=== PATIENT | female | born 1980 | race Caucasian/White ===

== ENCOUNTER 2019-03-21 18:10 | Emergency (ER) | payer OTHER ==
[2019-03-21] MEDS ORDERED: BABY ASPIRIN 81 MG CHEW PO ONE (18:27)
--- NOTE | 2019-03-21 18:31 | ERPHSYRPT ---
<SHELLY WANG - Last Filed: 03/21/19 18:54> - History of Present Illness Time Seen by Provider: 03/21/19 18:29 Historian: patient Exam Limitations: no limitations Patient Subjective Stated Complaint: having chest pain since noon , tried taking medications at home clonipin and2 baby aspirin with no relief Triage Nursing Assessment: patient is alert and orientedx3, able to ambulate by self, gait is steady, patient flushed skin warm and slightly diaphoretic, no edema noted, lung soudns clear Physician History: mild to mod anterior chest pain off and on since noon, pleuritic, nonrad, no injury, gone now Allergies/Adverse Reactions: ondansetron HCl [From [email or web address]] Adverse Reaction (Mild, Verified 02/21/13 05:06) Headache Home Medications: Tramadol HCl 50 mg [Ultram 50 mg] 50 mg PO Q8H PRN 02/21/13 [History] Hx Tetanus, Diphtheria Vaccination/Date Given: Yes Hx Influenza Vaccination/Date Given: No Hx Pneumococcal Vaccination/Date Given: No Immunizations Up to Date: Yes - Review of Systems Constitutional: No Fever Eyes: No Eye Redness Ears, Nose, & Throat: No Nose Congestion Respiratory: No Dyspnea Cardiac: Chest Pain Abdominal/Gastrointestinal: No Abdominal Pain Musculoskeletal: No Back Pain Skin: No Rash Neurological: No Dizziness - Past Medical History Pertinent Past Medical History: Yes Neurological History: Migraines Cardiac History: Arrhythmia, Other Psycho-Social History: Depression Other Medical History: mumurl, tricuspid valve regurgitation - Past Surgical History Past Surgical History: Yes Gastrointestinal: Exploratory Laparoscopy - Social History Smoking Status: Never smoker Exposure to second hand smoke: No Drug Use: none Patient Lives Alone: No - Female History Hx Now: No - Nursing Vital Signs Nursing Vital Signs: Initial Vital Signs Temperature 98.3 F 03/21/19 18:11 Pulse Rate 60 03/21/19 18:11 Respiratory Rate 16 03/21/19 18:11 Blood Pressure 152/94 03/21/19 18:11 O2 Sat by Pulse Oximetry 96 03/21/19 18:11 Pain Scale Pain Intensity 7 - Physical Exam General Appearance: no apparent distress Eye Exam: eyes nml inspection Ears, Nose, Throat Exam: moist mucous membranes Neck Exam: normal inspection Respiratory Exam: normal breath sounds Cardiovascular Exam: regular rate/rhythm Gastrointestinal/Abdomen Exam: soft, No tenderness Back Exam: normal range of motion Extremity Exam: normal inspection Neurologic Exam: alert, oriented x 3, cooperative Skin Exam: normal color, warm, dry SpO2: 96 Ordered Tests: Active Orders 24 hr Category Date Time Status Charge Aide STAT Care 03/21/19 18:28 Active EKG-ER Only STAT Care 03/21/19 18:27 Active IV Insertion STAT Care 03/21/19 18:27 Active CHEST 1 VIEW (PORTABLE) Stat Exams 03/21/19 18:28 Taken AMYLASE Stat Lab 03/21/19 18:00 Completed CBC W DIFF Stat Lab 03/21/19 18:39 Completed CMP Stat Lab 03/21/19 18:39 Completed D-DIMER QUANTITATION Stat Lab 03/21/19 18:39 Completed HCG,QUALITATIVE URINE Stat Lab 03/21/19 18:15 Completed LIPASE Stat Lab 03/21/19 18:00 Completed TROPONIN Q3H Lab 03/21/19 18:39 Completed TROPONIN Q3H Lab 03/21/19 21:09 Completed Urine Triage Profile Stat Lab 03/21/19 18:15 Completed Medication Summary Discontinued Medications Generic Name Dose Route Start Last Admin Trade Name Aramisq PRN Reason Stop Dose Admin Hydrocodone Bitart/Acetaminophen 1 tab 03/21/19 21:19 03/21/19 21:24 [place] 5/325 Mg PO 03/21/19 21:20 1 tab STAT ONE Administration Hydrocodone Bitart/Acetaminophen Confirm 03/21/19 21:23 [place] 5/325 Mg Administered 03/21/19 21:24 Dose 1 tab .ROUTE .STK-MED ONE Hydrocodone Bitart/Acetaminophen 2 tab 03/21/19 22:03 03/21/19 22:06 [place] 5/325 Mg PO 03/21/19 22:04 2 tab SENT HOME W/ PATIENT ONE Administration Hydrocodone Bitart/Acetaminophen Confirm 03/21/19 22:03 [place] 5/325 Mg Administered 03/21/19 22:04 Dose 2 tab .ROUTE .STK-MED ONE Aspirin 324 mg 03/21/19 18:27 03/21/19 18:39 Baby Aspirin 81 Mg Chew PO 03/21/19 18:28 162 mg STAT ONE Administration Promethazine HCl 25 mg 03/21/19 19:20 03/21/19 19:25 Phenergan 25 Mg Inj IM 03/21/19 19:21 25 mg STAT ONE Administration Promethazine HCl Confirm 03/21/19 19:23 Phenergan 25 Mg Inj Administered 03/21/19 19:24 Dose 25 mg .ROUTE .STK-MED ONE Promethazine HCl 25 mg 03/21/19 22:04 03/21/19 22:05 Phenergan 25 Mg PO 03/21/19 22:05 25 mg STAT ONE Administration Promethazine HCl Confirm 03/21/19 22:03 Phenergan 25 Mg Administered 03/21/19 22:04 Dose 25 mg .ROUTE .STK-MED ONE Lab/Rad Data: Laboratory Result Diagrams 03/21/19 18:39 03/21/19 18:39 Laboratory Results 03/21/19 03/21/19 03/21/19 Range/Units 21:09 18:39 18:39 WBC (4.0-10.5) K/mm3 RBC (4.1-5.4) M/mm3 Hgb (12.0-16.0) gm/dl Hct (35-47) % MCV (78-100) fl MCH (26-32) pg MCHC (32-36) g/dl RDW (11.5-14.0) % Plt Count (150-450) K/mm3 MPV (6-9.5) fl Gran % (36.0-66.0) % Eos # (Auto) (0-0.5) Absolute Lymphs (auto) (1.0-4.6) Absolute Monos (auto) (0.0-1.3) Lymphocytes % (24.0-44.0) % Monocytes % (0.0-12.0) % Eosinophils % (0.00-5.0) % Basophils % (0.0-0.4) % Absolute Granulocytes (1.4-6.9) Basophils # (0-0.4) D-Dimer 296 (215-500) ng/mL Sodium (137-145) mmol/L Potassium (3.5-5.1) mmol/L Chloride (98-107) mmol/L Carbon Dioxide (22-30) mmol/L Anion Gap (5-15) MEQ/L BUN (7-17) mg/dL Creatinine (0.52-1.04) mg/dL Estimated GFR ML/MIN Glucose (74-106) mg/dL Calcium (8.4-10.2) mg/dL Total Bilirubin (0.2-1.3) mg/dL AST (14-36) U/L ALT (0-35) U/L Alkaline Phosphatase (38-126) U/L Troponin I < 0.012 < 0.012 (0.000-0.034) ng/mL Serum Total Protein (6.3-8.2) g/dL Albumin (3.5-5.0) g/dL Amylase (30-110) U/L Lipase (23-300) U/L Urine HCG, Qual (Negative) Urine Opiates Level (NEGATIVE) Ur Methadone (NEGATIVE) Urine Barbiturates (NEGATIVE) Ur Phencyclidine (PCP) (NEGATIVE) Urine Amphetamine (NEGATIVE) U Benzodiazepine Level (NEGATIVE) Urine Cocaine (NEGATIVE) Urine Marijuana (THC) (NEGATIVE) 03/21/19 03/21/19 03/21/19 Range/Units 18:39 18:39 18:15 WBC 12.0 H (4.0-10.5) K/mm3 RBC 4.40 (4.1-5.4) M/mm3 Hgb 13.9 (12.0-16.0) gm/dl Hct 41.4 (35-47) % MCV 94.1 (78-100) fl MCH 31.6 (26-32) pg MCHC 33.6 (32-36) g/dl RDW 12.8 (11.5-14.0) % Plt Count 285 (150-450) K/mm3 MPV 10.9 H (6-9.5) fl Gran % 62.7 (36.0-66.0) % Eos # (Auto) 0.34 (0-0.5) Absolute Lymphs (auto) 3.20 (1.0-4.6) Absolute Monos (auto) 0.91 (0.0-1.3) Lymphocytes % 26.7 (24.0-44.0) % Monocytes % 7.6 (0.0-12.0) % Eosinophils % 2.8 (0.00-5.0) % Basophils % 0.2 (0.0-0.4) % Absolute Granulocytes 7.53 H (1.4-6.9) Basophils # 0.02 (0-0.4) D-Dimer (215-500) ng/mL Sodium 140 (137-145) mmol/L Potassium 4.1 (3.5-5.1) mmol/L Chloride 107 (98-107) mmol/L Carbon Dioxide 24 (22-30) mmol/L Anion Gap 12.2 (5-15) MEQ/L BUN 13 (7-17) mg/dL Creatinine 0.76 (0.52-1.04) mg/dL Estimated GFR > 60.0 ML/MIN Glucose 90 (74-106) mg/dL Calcium 9.3 (8.4-10.2) mg/dL Total Bilirubin 0.50 (0.2-1.3) mg/dL AST 25 (14-36) U/L ALT 24 (0-35) U/L Alkaline Phosphatase 65 (38-126) U/L Troponin I (0.000-0.034) ng/mL Serum Total Protein 7.6 (6.3-8.2) g/dL Albumin 4.3 (3.5-5.0) g/dL Amylase (30-110) U/L Lipase (23-300) U/L Urine HCG, Qual (Negative) Urine Opiates Level NEGATIVE (NEGATIVE) Ur Methadone NEGATIVE (NEGATIVE) Urine Barbiturates NEGATIVE (NEGATIVE) Ur Phencyclidine (PCP) NEGATIVE (NEGATIVE) Urine Amphetamine NEGATIVE (NEGATIVE) U Benzodiazepine Level NEGATIVE (NEGATIVE) Urine Cocaine NEGATIVE (NEGATIVE) Urine Marijuana (THC) NEGATIVE (NEGATIVE) 03/21/19 03/21/19 Range/Units 18:15 18:00 WBC (4.0-10.5) K/mm3 RBC (4.1-5.4) M/mm3 Hgb (12.0-16.0) gm/dl Hct (35-47) % MCV (78-100) fl MCH (26-32) pg MCHC (32-36) g/dl RDW (11.5-14.0) % Plt Count (150-450) K/mm3 MPV (6-9.5) fl Gran % (36.0-66.0) % Eos # (Auto) (0-0.5) Absolute Lymphs (auto) (1.0-4.6) Absolute Monos (auto) (0.0-1.3) Lymphocytes % (24.0-44.0) % Monocytes % (0.0-12.0) % Eosinophils % (0.00-5.0) % Basophils % (0.0-0.4) % Absolute Granulocytes (1.4-6.9) Basophils # (0-0.4) D-Dimer (215-500) ng/mL Sodium (137-145) mmol/L Potassium (3.5-5.1) mmol/L Chloride (98-107) mmol/L Carbon Dioxide (22-30) mmol/L Anion Gap (5-15) MEQ/L BUN (7-17) mg/dL Creatinine (0.52-1.04) mg/dL Estimated GFR ML/MIN Glucose (74-106) mg/dL Calcium (8.4-10.2) mg/dL Total Bilirubin (0.2-1.3) mg/dL AST (14-36) U/L ALT (0-35) U/L Alkaline Phosphatase (38-126) U/L Troponin I (0.000-0.034) ng/mL Serum Total Protein (6.3-8.2) g/dL Albumin (3.5-5.0) g/dL Amylase 80 (30-110) U/L Lipase 91 (23-300) U/L Urine HCG, Qual NEGATIVE (Negative) Urine Opiates Level (NEGATIVE) Ur Methadone (NEGATIVE) Urine Barbiturates (NEGATIVE) Ur Phencyclidine (PCP) (NEGATIVE) Urine Amphetamine (NEGATIVE) U Benzodiazepine Level (NEGATIVE) Urine Cocaine (NEGATIVE) Urine Marijuana (THC) (NEGATIVE) - Progress Progress Note: 03/21/19 18:[address] Carcamo at 19:00 - Departure Clinical Impression: Non-cardiac chest pain Condition: Fair Referrals: DUNCAN SOSA [NON-STAFF PHY W/O PRIVILEGES] - Instructions: Angina, Chest Pain Additional Instructions: Return home. Plenty of fluids. Phenergan as prescribed for nausea and vomiting. [place] as prescribed for pain. Followup with your family doctor call tomorrow for appointment. Return for acute distress or for severe symptoms or for any problems. Prescriptions: Hydrocodone/APAP 5-325 Tab^^^ [[place] 5-325 Tablet^^^] 1 each PO Q4HPRN PRN #12 tablet MDD 6 PRN Reason: Pain Promethazine HCl 25 mg [Phenergan 25 mg] 25 mg PO Q4-6HPRN PRN #12 tablet PRN Reason: nausea and vomiting <THANG CARCAMO - Last Filed: 03/22/19 01:57> - History of Present Illness Physician History: 6 This is a 38-year-old white female arrives with complaint of sharp pain anterior sternal region going off-and-on since noon worse with moving and breathing past medical history includes migraines and arrhythmia depression she apparently has a murmur and tricuspid regurgitation patient initially seen by Dr. Dick patient with EKG remarkable for normal sinus rhythm 59 beats per minute no acute ST or T wave changes normal EKG Patient with a normal vitals normal labs Patient's chest x-ray no acute disease process noted patient was given aspirin. Patient did vomit one time she was given Phenergan. Patient with a normal chest x-ray. Initial troponin within normal limits patient states she does have some pain with deep breathing d-dimer 513, I have offered to obtain CT chest she does not want to do this we're waiting for repeat troponin. Patient did ask for something for pain I went ahead and ordered some [place] for her. She states she's not on [place] at this time Aspirin Treatment Today: 81 mg x 4, provided by ED - Progress Progress: improved Air Movement: fair Progress Note: 03/21/19 21:56 38-year-old white female arrives with complaint of anterior chest pain off and on since noon chest pain is located on the right pain is sharp worse with breathing. Patient initially seen by Dr. Wang Patient with normal vitals EKG sinus rhythm 59 beats per minute normal axis no acute ST or T wave changes normal EKG Patient with chest x-ray no acute disease process noted patient with a normal troponin x2 amylase lipase within normal limits CBC CMP within normal limits patient's d-dimer is elevated at 513 with normal of 500 patient does not want CTA performed. Patient did have some nausea she was given Phenergan patient has received aspirin. Patient given [place] she is improved with the [place]. Will go ahead and discharge the patient impression: Noncardiac chest pain. Will discharge with [place], Phenergan, rest, plenty of fluids patient is instructed to followup with her family - Departure Departure Disposition: Home Critical Care Time: No
[2019-03-21 18:43] LABS: BASOPHIL % 0.2 % (0.0-0.4); Basophil (Absolute #) 0.02 (0-0.4); Eosinophil % 2.8 % (0.00-5.0); Eosinophil (Absolute #) 0.34 (0-0.5); Granulocyte Absolute (ANC) 7.53 (1.4-6.9); Granulocytes % 62.7 % (36.0-66.0); Hematocrit 41.4 % (35-47); Hemoglobin 13.9 gm/dl (12.0-16.0); Lymphocytes % 26.7 % (24.0-44.0); Mean Cell Volume 94.1 fl (78-100); Mean Corpuscular Hemoglobin 31.6 pg (26-32); Mean Corpuscular Hgb Concent. 33.6 g/dl (32-36); Mean Platelet Volume 10.9 fl (6-9.5); Monocyte (Absolute #) 0.91 (0.0-1.3); Monocytes % 7.6 % (0.0-12.0); Platelet Count 285 K/mm3 (150-450); Red Cell Distribution Width 12.8 % (11.5-14.0)
[2019-03-21 18:54] LABS: ALBUMIN 4.3 g/dL (3.5-5.0); ALKALINE PHOSPHATASE 65 U/L (38-126); ANION GAP 12.2 MEQ/L (5-15); BLOOD UREA NITROGEN 13 mg/dL (7-17); CHLORIDE 107 mmol/L (98-107); Calcium 9.3 mg/dL (8.4-10.2); Carbon Dioxide 24 mmol/L (22-30); Creatinine 1 0.76 mg/dL (0.52-1.04); Glucose 90 mg/dL (74-106); Potassium 4.1 mmol/L (3.5-5.1); SGOT/AST 25 U/L (14-36); SGPT/ALT 24 U/L (0-35); SODIUM 140 mmol/L (137-145); Total Protein 7.6 g/dL (6.3-8.2)
[2019-03-21] MEDS ORDERED: Phenergan 25 MG INJ IM ONE (19:20)
[2019-03-21] MEDS ORDERED: Phenergan 25 MG INJ ONE (19:23)
[2019-03-21 19:35] LABS: AMYLASE 80 U/L (30-110); LIPASE 91 U/L (23-300)
[2019-03-21 20:06] VITALS: O2SAT 98
[2019-03-21 20:19] LABS: Amphetamine,Urine NEGATIVE (NEGATIVE); Barbiturate,Urine NEGATIVE (NEGATIVE); Benzodiazepine,Urine NEGATIVE (NEGATIVE); Cocaine,Urine NEGATIVE (NEGATIVE); Methadone,Urine NEGATIVE (NEGATIVE); Opiate,Urine NEGATIVE (NEGATIVE); PCP,Urine NEGATIVE (NEGATIVE); THC,Urine NEGATIVE (NEGATIVE)
[2019-03-21] MEDS ORDERED: NORCO 5/325 MG PO ONE ×2 (21:19→22:03)
[2019-03-21] MEDS ORDERED: NORCO 5/325 MG ONE ×2 (21:23→22:03)
[2019-03-21] MEDS ORDERED: PHENERGAN 25 MG ONE (22:03)
[2019-03-21] MEDS ORDERED: PHENERGAN 25 MG PO ONE (22:04)
[2019-03-21 22:26] VITALS: BP 119/74; PULSE 67
--- NOTE | 2019-03-22 09:07 | XRAY ---
Indication: Chest pain and vomiting. Comparison: None Portable chest demonstrates normal heart, lungs, and bony thorax.
== END 2019-03-21 22:26 | disposition home or self-care (01) ==
LOC: ED 18:10
DX: R07.89 Other chest pain (principal); R11.2 Nausea with vomiting, unspecified
CPT/HCPCS: 36415; 71045; 80053; 80307; 82150; 83690; 84484; 84703; 85025; 85379; 93005; 93041; 96372; 99284; J2550; A9270-GY

== ENCOUNTER 2020-05-05 20:55 | Emergency (ER) | payer OTHER ==
[2020-05-05] MEDS ORDERED: Sodium Chloride 0.9% 1000 ML 1,000 ML IV STA (21:19)
[2020-05-05] MEDS ORDERED: DECADRON 10MG INJ. PO ONE (21:22)
--- NOTE | 2020-05-05 21:26 | ERPHSYRPT ---
- History of Present Illness Time Seen by Provider: 05/05/20 21:20 Source: patient Exam Limitations: no limitations Physician History: Patient is a 39-year-old female who presents to our ED with complaints of chest pain shortness of breath cough myalgias global headache and fever for approximately 1 week. Symptoms have been constant. Patient had a COVID test today which resulted as positive. No trauma. No neck pain. No photophobia. Symptoms are mild to moderate in intensity. No specific worsening or improving factors. Patient states she is otherwise generally healthy. She voices no other complaints at this time. Timing/Duration: week(s) (1 week) Severity: moderate Modifying Factors: Improves With: nothing Associated Symptoms: nausea, vomiting, shortness of breath, cough, chest pain, fever, headaches, loss of appetite, weakness, No rash, No syncope, No seizure Allergies/Adverse Reactions: norethindrone [From Aygestin] Adverse Reaction (Intermediate, Verified 05/05/20 21:28) ondansetron HCl [From Zofran] Adverse Reaction (Mild, Verified 02/21/13 05:06) Headache Home Medications: Amitriptyline HCl 10 mg [Elavil 10 mg] 10 mg PO HS 05/05/20 [History] Cetirizine HCl 10 mg PO DAILY 05/05/20 [History] Clonazepam 1 mg PO TID 05/05/20 [History] Ketorolac Tromethamine [Toradol] 10 mg PO Q6HPRN PRN 05/05/20 [History] Progesterone, Micronized [Progesterone] 200 mg PO HS 05/05/20 [History] Vilazodone HCl [Viibryd] 20 mg PO DAILY 05/05/20 [History] Hx Tetanus, Diphtheria Vaccination/Date Given: Yes Hx Influenza Vaccination/Date Given: No Hx Pneumococcal Vaccination/Date Given: No - Review of Systems Constitutional: No Symptoms, No Fever, No Chills Eyes: No Symptoms Ears, Nose, & Throat: No Symptoms Respiratory: No Symptoms, No Cough, No Dyspnea Cardiac: No Symptoms, No Chest Pain, No Edema, No Syncope Abdominal/Gastrointestinal: No Symptoms, No Abdominal Pain, No Nausea, No Vomiting, No Diarrhea Genitourinary Symptoms: No Symptoms, No Dysuria Musculoskeletal: No Symptoms, No Back Pain, No Neck Pain Skin: No Symptoms, No Rash Neurological: No Symptoms, No Dizziness, No Focal Weakness, No Sensory Changes Psychological: No Symptoms Endocrine: No Symptoms Hematologic/Lymphatic: No Symptoms Immunological/Allergic: No Symptoms All Other Systems: Reviewed and Negative - Past Medical History Pertinent Past Medical History: Yes Neurological History: Migraines Cardiac History: Arrhythmia, Other Psycho-Social History: Depression Other Medical History: mumurl, tricuspid valve regurgitation - Past Surgical History Past Surgical History: Yes Gastrointestinal: Exploratory Laparoscopy - Social History Smoking Status: Never smoker Exposure to second hand smoke: No Drug Use: none Patient Lives Alone: No - Nursing Vital Signs Nursing Vital Signs: Initial Vital Signs Temperature 100.8 F 05/05/20 21:15 Pulse Rate 102 H 05/05/20 21:15 Respiratory Rate 28 H 05/05/20 21:15 Blood Pressure 143/103 05/05/20 21:15 O2 Sat by Pulse Oximetry 98 05/05/20 21:15 Pain Scale Pain Intensity 5 - Physical Exam General Appearance: no apparent distress, alert Eye Exam: PERRL/EOMI, eyes nml inspection Ears, Nose, Throat Exam: normal ENT inspection, TMs normal, pharynx normal, moist mucous membranes Neck Exam: normal inspection, non-tender, supple, full range of motion Respiratory Exam: normal breath sounds, lungs clear, No respiratory distress Cardiovascular Exam: regular rate/rhythm, normal heart sounds, normal peripheral pulses Gastrointestinal/Abdomen Exam: soft, normal bowel sounds, No tenderness, No mass Back Exam: normal inspection, normal range of motion, No CVA tenderness, No vertebral tenderness Extremity Exam: normal inspection, normal range of motion, pelvis stable Neurologic Exam: alert, oriented x 3, cooperative, normal mood/affect, nml cerebellar function, nml station & gait, sensation nml, No motor deficits Skin Exam: normal color, warm, dry, No rash Lymphatic Exam: No adenopathy SpO2 Interpretation: normal SpO2: 98 O2 Delivery: Room Air - Course Nursing assessment & vital signs reviewed: Yes EKG Interpreted by Me: RATE (96), Sinus Rhythm, NORMAL AXIS, NORMAL INTERVALS Ordered Tests: Active Orders 24 hr Category Date Time Status Gear Lapping Machine Operator STAT Care 05/05/20 21:20 Active EKG-ER Only STAT Care 05/05/20 21:19 Active IV Insertion STAT Care 05/05/20 21:19 Active Pulse Oximetry (ED) STAT Care 05/05/20 21:19 Active CHEST WITH CONTRAST [CT] Stat Exams 05/05/20 22:25 Taken CBC W DIFF Stat Lab 05/05/20 21:25 Completed CK-Creatinine Phosphokinase Stat Lab 05/05/20 21:25 Completed CMP Stat Lab 05/05/20 21:25 Completed D-DIMER QUANTITATIVE Stat Lab 05/05/20 21:25 Completed HCG,QUALITATIVE URINE Stat Lab 05/05/20 21:51 Completed Lactic Acid Stat Lab 05/05/20 21:19 Completed UA W/RFX UR CULTURE Stat Lab 05/05/20 21:51 Completed Medication Summary Generic Name Dose Route Start Last Admin Trade Name Freq PRN Reason Stop Dose Admin Doxycycline Hyclate 100 mg/ 100 mls @ 100 mls/hr 05/06/20 10:00 05/05/20 23:53 Dextrose IV 06/05/20 09:59 100 mls/hr Q12HT JENNY Administration Discontinued Medications Generic Name Dose Route Start Last Admin Trade Name Freq PRN Reason Stop Dose Admin Dexamethasone Sodium Phosphate 8 mg 05/05/20 21:22 05/05/20 21:30 Decadron 10mg Inj. PO 05/05/20 21:23 8 mg STAT ONE Administration Dexamethasone Sodium Phosphate Confirm 05/05/20 21:27 Decadron 10mg Inj. Administered 05/05/20 21:28 Dose 10 mg .ROUTE .STK-MED ONE Diphenhydramine HCl 25 mg 05/05/20 21:35 05/05/20 21:39 Benadryl 50 Mg/Ml IV 05/05/20 21:36 25 mg STAT ONE Administration Diphenhydramine HCl Confirm 05/05/20 21:37 Benadryl 50 Mg/Ml Administered 05/05/20 21:38 Dose 50 mg .ROUTE .STK-MED ONE Sodium Chloride 1,000 mls @ 999 mls/hr 05/05/20 21:19 05/05/20 22:31 Sodium Chloride 0.9% 1000 Ml IV 05/05/20 22:19 Infused .Q1H1M STA Infusion Sodium Chloride Confirm 05/05/20 21:27 Sodium Chloride 0.9% 1000 Ml Administered 05/05/20 21:28 Dose 1,000 mls @ ud .ROUTE .STK-MED ONE Metoclopramide HCl 10 mg 05/05/20 21:35 05/05/20 21:39 Reglan 10 Mg/2 Ml IV 05/05/20 21:36 10 mg STAT ONE Administration Metoclopramide HCl Confirm 05/05/20 21:37 Reglan 10 Mg/2 Ml Administered 05/05/20 21:38 Dose 10 mg .ROUTE .STK-MED ONE Morphine Sulfate 2 mg 05/05/20 21:36 05/05/20 21:43 Morphine Sulfate 2 Mg Inj IV 05/05/20 21:37 2 mg STAT ONE Administration Morphine Sulfate Confirm 05/05/20 21:41 Morphine Sulfate 2 Mg Inj Administered 05/05/20 21:42 Dose 2 mg .ROUTE .STK-MED ONE Lab/Rad Data: Laboratory Result Diagrams 05/05/20 21:25 05/05/20 21:25 Laboratory Results 05/05/20 05/05/20 05/05/20 Range/Units 21:51 21:51 21:25 WBC (4.0-10.5) K/mm3 RBC (4.1-5.4) M/mm3 Hgb (12.0-16.0) gm/dl Hct (35-47) % MCV (78-100) fl MCH (26-32) pg MCHC (32-36) g/dl RDW (11.5-14.0) % Plt Count (150-450) K/mm3 MPV (7.5-11.0) fl Gran % (36.0-66.0) % Eos # (Auto) (0-0.5) Absolute Lymphs (auto) (1.0-4.6) Absolute Monos (auto) (0.0-1.3) Lymphocytes % (24.0-44.0) % Monocytes % (0.0-12.0) % Eosinophils % (0.00-5.0) % Basophils % (0.0-0.4) % Absolute Granulocytes (1.4-6.9) Basophils # (0-0.4) D-Dimer 625 H* (215-500) ng/mL Sodium (137-145) mmol/L Potassium (3.5-5.1) mmol/L Chloride (98-107) mmol/L Carbon Dioxide (22-30) mmol/L Anion Gap (5-15) MEQ/L BUN (7-17) mg/dL Creatinine (0.52-1.04) mg/dL Estimated GFR ML/MIN Glucose (74-106) mg/dL Lactic Acid (0.4-2.0) Calcium (8.4-10.2) mg/dL Total Bilirubin (0.2-1.3) mg/dL AST (14-36) U/L ALT (0-35) U/L Alkaline Phosphatase (38-126) U/L Creatine Kinase (30-135) U/L Serum Total Protein (6.3-8.2) g/dL Albumin (3.5-5.0) g/dL Urine Color YELLOW (YELLOW) Urine Appearance CLEAR (CLEAR) Urine pH 7.0 (5-6) Ur Specific [place] 1.012 (1.005-1.025) Urine Protein NEGATIVE (Negative) Urine Ketones SMALL (NEGATIVE) Urine Blood NEGATIVE (0-5) [place]/ul Urine Nitrite NEGATIVE (NEGATIVE) Urine Bilirubin NEGATIVE (NEGATIVE) Urine Urobilinogen NEGATIVE (0-1) mg/dL Ur Leukocyte Esterase NEGATIVE (NEGATIVE) Urine WBC (Auto) NONE SEEN (0-5) /HPF Urine RBC (Auto) NONE (0-2) /HPF U Epithel Cells (Auto) NONE (FEW) /HPF Urine Bacteria (Auto) NONE (NEGATIVE) /HPF Urine Mucus (Auto) SLIGHT (NEGATIVE) /HPF Urine Culture Reflexed NO (NO) Urine Glucose NEGATIVE (NEGATIVE) mg/dL Urine HCG, Qual NEGATIVE (Negative) 05/05/20 05/05/20 05/05/20 Range/Units 21:25 21:25 21:19 WBC 4.0 (4.0-10.5) K/mm3 RBC 4.82 (4.1-5.4) M/mm3 Hgb 14.7 (12.0-16.0) gm/dl Hct 44.5 (35-47) % MCV 92.3 (78-100) fl MCH 30.5 (26-32) pg MCHC 33.0 (32-36) g/dl RDW 12.9 (11.5-14.0) % Plt Count 168 (150-450) K/mm3 MPV 12.3 H (7.5-11.0) fl Gran % 48.4 (36.0-66.0) % Eos # (Auto) 0.01 (0-0.5) Absolute Lymphs (auto) 1.38 (1.0-4.6) Absolute Monos (auto) 0.67 (0.0-1.3) Lymphocytes % 34.5 (24.0-44.0) % Monocytes % 16.8 H (0.0-12.0) % Eosinophils % 0.3 (0.00-5.0) % Basophils % 0.0 (0.0-0.4) % Absolute Granulocytes 1.94 (1.4-6.9) Basophils # 0 (0-0.4) D-Dimer (215-500) ng/mL Sodium 135 L (137-145) mmol/L Potassium 3.9 (3.5-5.1) mmol/L Chloride 104 (98-107) mmol/L Carbon Dioxide 19 L (22-30) mmol/L Anion Gap 15.5 H (5-15) MEQ/L BUN 14 (7-17) mg/dL Creatinine 0.79 (0.52-1.04) mg/dL Estimated GFR > 60.0 ML/MIN Glucose 94 (74-106) mg/dL Lactic Acid 1.0 (0.4-2.0) Calcium 9.7 (8.4-10.2) mg/dL Total Bilirubin 0.40 (0.2-1.3) mg/dL AST 33 (14-36) U/L ALT 32 (0-35) U/L Alkaline Phosphatase 89 (38-126) U/L Creatine Kinase 32 (30-135) U/L Serum Total Protein 7.9 (6.3-8.2) g/dL Albumin 4.6 (3.5-5.0) g/dL Urine Color (YELLOW) Urine Appearance (CLEAR) Urine pH (5-6) Ur Specific [place] (1.005-1.025) Urine Protein (Negative) Urine Ketones (NEGATIVE) Urine Blood (0-5) Temo/ul Urine Nitrite (NEGATIVE) Urine Bilirubin (NEGATIVE) Urine Urobilinogen (0-1) mg/dL Ur Leukocyte Esterase (NEGATIVE) Urine WBC (Auto) (0-5) /HPF Urine RBC (Auto) (0-2) /HPF U Epithel Cells (Auto) (FEW) /HPF Urine Bacteria (Auto) (NEGATIVE) /HPF Urine Mucus (Auto) (NEGATIVE) /HPF Urine Culture Reflexed (NO) Urine Glucose (NEGATIVE) mg/dL Urine HCG, Qual (Negative) - Progress Progress: improved Progress Note: 05/06/20 00:12 Patient reassessed. She feels much better. D-dimer positive. CTA negative for PE. CT significant for right lower lobe pneumonia. Patient is noted to be covered positive. This pneumonia is not typical of cold with pneumonia. We will treat with antibiotics. Patient received a dose of doxycycline in our ED. A prescription for the same was provided. Patient states she feels well enough to go home. Vital stable. Patient ambulated in her room and maintain oxygen saturation above 95%. Patient is no longer short of breath. Patient agrees to follow-up with her primary care doctor within 48 hours for reevaluation. Counseled pt/family regarding: lab results, diagnosis, need for follow-up, rad results - Departure Departure Disposition: Home Clinical Impression: COVID-19, Right lower lobe pneumonia Condition: Stable Critical Care Time: No Referrals: DAVID LUND MD [Primary Care Provider] - Additional Instructions: Discharge/Care Plan CYNTHIA LANDON was seen on 05/05/20 in the Emergency Room. The patient was counseled regarding Diagnosis,Lab results, Imaging studies, need for follow up and when to return to the Emergency Room. Prescriptions given: Discharge Note I have spoken with the patient and/or caregivers. I have explained the patient's condition, diagnosis and treatment plan based on the information available to me at this time. I have answered the patient's and/or caregiver's questions and addressed any concerns. The patient and/or caregivers have as good understanding of the patient's diagnosis, condition and treatment plan as can be expected at this point. The vital signs have been stable. The patient's condition is stable and appropriate for discharge from the emergency department. The patient will pursue further outpatient evaluation with the primary care physician or other designated or consulting physician as outlined in the discharge instructions. The patient and/or caregivers are agreeable to this plan of care and follow-up instructions have been explained in detail. The patient and/or caregivers have received these instruction. The patient/and or caregivers are aware that any significant change in condition or worsening of symptoms should prompt an immediate return to this or the closest emergency department or call 911. Prescriptions: Doxycycline Hyclate 100 mg [Vibramycin 100 MG] 100 mg PO BID 7 Days #14 tab
[2020-05-05] MEDS ORDERED: Sodium Chloride 0.9% 1000 ML 1,000 ML ONE (21:27)
[2020-05-05] MEDS ORDERED: DECADRON 10MG INJ. ONE (21:27)
[2020-05-05] MEDS ORDERED: Reglan 10 MG/2 ML IV ONE (21:35)
[2020-05-05] MEDS ORDERED: BENADRYL 50 MG/ML IV ONE (21:35)
[2020-05-05 21:36] LABS: Absolute Neutrophil Ct (ANC) 1.94 (1.4-6.9); Basophil (Absolute #) 0 (0-0.4); Eosinophil % 0.3 % (0.00-5.0); Eosinophil (Absolute #) 0.01 (0-0.5); Hematocrit 44.5 % (35-47); Hemoglobin 14.7 gm/dl (12.0-16.0); Lymphocyte (Absolute #) 1.38 (1.0-4.6); Lymphocytes % 34.5 % (24.0-44.0); Mean Cell Volume 92.3 fl (78-100); Mean Corpuscular Hemoglobin 30.5 pg (26-32); Mean Platelet Volume 12.3 fl (7.5-11.0); Monocyte (Absolute #) 0.67 (0.0-1.3); Monocytes % 16.8 % (0.0-12.0); Neutrophil % 48.4 % (36.0-66.0); Platelet Count 168 K/mm3 (150-450); Red Blood Count 4.82 M/mm3 (4.1-5.4); Red Cell Distribution Width 12.9 % (11.5-14.0)
[2020-05-05] MEDS ORDERED: MORPHINE SULFATE 2 MG INJ IV ONE (21:36)
[2020-05-05] MEDS ORDERED: BENADRYL 50 MG/ML ONE (21:37)
[2020-05-05] MEDS ORDERED: Reglan 10 MG/2 ML ONE (21:37)
[2020-05-05] MEDS ORDERED: MORPHINE SULFATE 2 MG INJ ONE (21:41)
[2020-05-05 21:47] LABS: ALBUMIN 4.6 g/dL (3.5-5.0); ALKALINE PHOSPHATASE 89 U/L (38-126); ANION GAP 15.5 MEQ/L (5-15); BLOOD UREA NITROGEN 14 mg/dL (7-17); CHLORIDE 104 mmol/L (98-107); CK-Creatinine Phosphokinase 32 U/L (30-135); Calcium 9.7 mg/dL (8.4-10.2); Carbon Dioxide 19 mmol/L (22-30); Creatinine 1 0.79 mg/dL (0.52-1.04); EST GLOMERULAR FILTRATION RATE > 60.0 ML/MIN; Glucose 94 mg/dL (74-106); Potassium 3.9 mmol/L (3.5-5.1); SGOT/AST 33 U/L (14-36); SGPT/ALT 32 U/L (0-35); SODIUM 135 mmol/L (137-145); Total Protein 7.9 g/dL (6.3-8.2)
[2020-05-05 21:57] LABS: Appearance CLEAR (CLEAR); Bilirubin NEGATIVE (NEGATIVE); Blood NEGATIVE Ery/ul (0-5); Glucose NEGATIVE (NEGATIVE); Ketones SMALL (NEGATIVE); Leukocyte Esterase NEGATIVE (NEGATIVE); Mucus SLIGHT /HPF (NEGATIVE); Nitrite NEGATIVE (NEGATIVE); Protein,Urine Dip NEGATIVE (Negative); Specific Gravity 1.012 (1.005-1.025); Urobilinogen NEGATIVE mg/dL (0-1)
[2020-05-05 21:58] LABS: WBC NONE SEEN /HPF (0-5)
[2020-05-05] MEDS ORDERED: VIBRAMYCIN 100 MG IV ONE (23:44)
[2020-05-05] MEDS ORDERED: D5w 100ML Mini Bag 100 ML 100 ML IV ONE (23:45)
[2020-05-06 01:10] VITALS: BP 104/64; PULSE 81; O2SAT 96
--- NOTE | 2020-05-06 08:59 | XRAY ---
Indication: Fever, cough, and elevated d-dimer. Covid 19 positive. Multiple contiguous axial images obtained through the chest using 80 cc Isovue 370 contrast and PE protocol. Comparison: None There is adequate opacification of the pulmonary arteries to include the lobar and segmental branches. No pulmonary embolus. Heart is not enlarged. Aorta is normal course and caliber. No pathologic mediastinal/hilar lymphadenopathy. Lungs are inflated with patchy right lower lobe airspace disease. No consolidation or large effusion. Bony thorax intact. Limited upper abdomen is unremarkable. Impression: 1. Negative pulmonary embolus. 2. Right lower lobe airspace disease.
[2020-05-06] MEDS ORDERED: VIBRAMYCIN 100 MG*** 100 MG in Dextrose 5%/Water IV Soln. 100ML PLUS BAG 100 ML IV SCH (10:00)
== END 2020-05-06 01:18 | disposition home or self-care (01) ==
LOC: ED 20:55
DX: U07.1 COVID-19 (principal); J18.9 Pneumonia, unspecified organism
CPT/HCPCS: 36000; 36415; 71260; 80053; 81001; 82550; 83605; 84703; 85025; 85379; 93005; 93041; 94760; 96365; 96374; 96375; 99285; J1100; J1200; J2270

== ENCOUNTER 2020-06-02 06:58 | Day surgery (SDC) | payer OTHER ==
[~2020-06-02 06:58] MED LIST: CEFAZOLIN 2 GM-D5W BAG** 2 GM/50 ML ML IV SCH; Lactated Ringers 1,000 ML IV SCH
[2020-06-02] MEDS ORDERED: CEFAZOLIN 2 GM-D5W BAG** 2 GM/50 ML ML IV ONE (07:44)
[2020-06-02] MEDS ORDERED: Transderm Scop 1.5MG Patch TOP PRN (08:48)
[2020-06-02] MEDS ORDERED: Versed 2 MG/2 ML Injection IV PRN (08:55)
[2020-06-02] MEDS ORDERED: Xylocaine-Mpf 2% 5 Ml Vial ONE (09:33)
[2020-06-02] MEDS ORDERED: SUBLIMAZE 250 MCG/5 ML ONE (09:33)
[2020-06-02] MEDS ORDERED: DIPRIVAN 200 MG/20 ML IV ONE ×2 (09:33→09:46)
[2020-06-02] MEDS ORDERED: Versed 2 MG/2 ML Injection ONE (09:33)
[2020-06-02] MEDS ORDERED: Ketamine HCl 50 MG/ML ONE (09:34)
[2020-06-02] MEDS ORDERED: TORAdol 30 mg Injection ONE (09:57)
[2020-06-02 11:24] VITALS: BP 123/80; PULSE 59; O2SAT 98
--- NOTE | 2020-06-03 08:10 | OP ---
SURGERY DATE/TIME: 06/02/2020 0937 PREOPERATIVE DIAGNOSIS: Abnormal uterine bleeding. POSTOPERATIVE DIAGNOSIS: Abnormal uterine bleeding with endometrial polyp and submucosal fibroid. PROCEDURE: Hysteroscopy, D&C. SURGEON: Cristóbal Silva D.O. FINANCE BUSINESS MANAGER: Rashawn Villegas surgical technologist. ANESTHESIA: General. ESTIMATED BLOOD LOSS: Minimal. COMPLICATIONS: None. INDICATIONS: The risks, benefits, indications and alternatives of the procedure were reviewed with the patient prior to the procedure. The patient understood the risk of infection, bleeding, bowel injury, bladder injury, ureteral injury, uterine perforation, pelvic infection associated with the surgery however desires to have this surgery as a possible means to alleviate her current medical condition. DESCRIPTION OF PROCEDURE AND FINDINGS: At this point the patient is taken to the operating room, given general sedation, placed in dorsal lithotomy position. Prepped and draped in the usual sterile fashion. A weighted speculum is then placed in the patient's vagina and the anterior lip of the cervix was grasped with a single tooth tenaculum. Endocervical dilators were advanced to the endocervical canal as a means to dilate the cervix. Visualization via the hysteroscope after it was inserted revealed her to have a small 1 x 1 cm submucosal anterior fibroid and three small endometrial polyps located just proximal to the endocervical canal. From this point the hysteroscope was removed and the curette was then placed into the fundus of the uterus and curettage was performed in all quadrants of the uterus retrieving a mild to moderate amount of tissue. At the completion of the curettage the hysteroscope was then replaced back into the uterus where visualization revealed no gross abnormalities and at this point there were no submucosal fibroid that was noted along with no polypoid lesions as well. From this point again no gross abnormalities were located after the second hysteroscopic view. From this point the hysteroscope was then removed. All instruments were then removed from the patient's vaginal region. The patient was then taken out of dorsal lithotomy position. The patient was then taken out of anesthesia and was then taken to the recovery room in stable condition. All instruments and laps were accounted for x2.
== END 2020-06-02 11:30 | disposition home or self-care (01) ==
LOC: SDC 06:58
PROVIDERS: ATTEND Obstetrics & Gynecology
DX: N93.9 Abnormal uterine and vaginal bleeding, unspecified (principal); D25.0 Submucous leiomyoma of uterus; N84.0 Polyp of corpus uteri
CPT/HCPCS: 58558; 84703; 88305; J0690; J1885; J2250; J2704; J3010; A9270-GY

== ENCOUNTER 2020-09-22 06:34 | Day surgery (SDC) | payer OTHER ==
[2020-09-22] MEDS ORDERED: CEFAZOLIN 2 GM-D5W BAG** 2 GM/50 ML ML IV ONE (06:48)
[2020-09-22] MEDS ORDERED: Lactated Ringers 1,000 ML IV ONE (06:48)
[2020-09-22] MEDS ORDERED: Lactated Ringers 1,000 ML IV SCH (07:00)
[2020-09-22] MEDS ORDERED: CEFAZOLIN 2 GM-D5W BAG** 2 GM/50 ML ML IV SCH (07:00)
[2020-09-22] MEDS ORDERED: Xylocaine-Mpf 2% 5 Ml Vial ONE (08:20)
[2020-09-22] MEDS ORDERED: Transderm Scop 1.5MG Patch TOP ONE (08:20)
[2020-09-22] MEDS ORDERED: Decadron 4 MG INJ ONE (08:20)
[2020-09-22] MEDS ORDERED: Zofran 4 MG/2 ML VIAL ONE (08:20)
[2020-09-22] MEDS ORDERED: DIPRIVAN 200 MG/20 ML IV ONE ×2 (08:20→08:37)
[2020-09-22] MEDS ORDERED: SUBLIMAZE 100 MCG/2 ML ONE (08:21)
[2020-09-22] MEDS ORDERED: Versed 2 MG/2 ML Injection ONE (08:21)
[2020-09-22] MEDS ORDERED: TORAdol 30 mg Injection ONE (08:51)
[2020-09-22] MEDS ORDERED: Hydromorphone 1 mg/ml Injection ONE (09:04)
[2020-09-22 10:00] VITALS: O2SAT 99
[2020-09-22 10:34] VITALS: BP 130/74; PULSE 52
--- NOTE | 2020-09-23 08:29 | OP ---
SURGERY DATE/TIME: 09/22/2020 0826 PREOPERATIVE DIAGNOSIS: Abnormal uterine bleeding. POSTOPERATIVE DIAGNOSI: Abnormal uterine bleeding. PROCEDURE: D&C with NovaSure ablation. SURGEON: Cristóbal Silva D.O. FRENCH TUTOR: Rashawn Villegas lay out technician. ANESTHESIA: General. ESTIMATED BLOOD LOSS: Minimal. COMPLICATIONS: None. INDICATIONS: The risks, benefits, indications and alternatives of the procedure were reviewed with the patient prior to the procedure. The patient understood the risk of infection, bleeding, bowel injury, bladder injury, ureteral injury, uterine perforation, pelvic infection, thromboembolic disorder that may be associated with this procedure however desires to have this procedure as a possible means to alleviate her current medical condition. DESCRIPTION OF PROCEDURE AND FINDINGS: At this point the patient is taken to the operating room, given general sedation, placed in dorsal lithotomy position. Prepped and draped in the usual sterile fashion. A weighted speculum is then placed in the patient's vagina and the anterior lip of the cervix is grasped with a single tooth tenaculum. Endocervical dilators were advanced through the endocervical canal as a means to dilate the cervix and the uterus sounded to approximately 8 to 9 cm. From this point a curette was then placed into the fundus of the uterus and curettage was performed in all quadrants of the uterus retrieving a moderate amount of endometrial tissue. From this point hemostasis was obtained. From this point the NovaSure was then obtained and the length was placed at 6 cm with a width 4.4 cm and NovaSure was then engaged while it was turned on for an ablative time of 54 seconds. At the completion of the ablation the instrument was then disengaged and removed from the uterine cavity without complication. From this point all instruments were then removed from the patient's vaginal region. The patient was then taken out of the dorsal lithotomy position, was taken out of anesthesia and was then taken to the recovery room in stable condition. All instruments and laps were accounted for x2.
== END 2020-09-22 10:35 | disposition home or self-care (01) ==
LOC: SDC 06:34
PROVIDERS: ATTEND Obstetrics & Gynecology
DX: N93.9 Abnormal uterine and vaginal bleeding, unspecified (principal)
CPT/HCPCS: 58120; 84703; J0690; J1100; J1170; J1885; J2250; J2405; J2704; J3010; A9270-GY

== ENCOUNTER 2022-10-17 08:24 | Emergency (ER) | payer BC ==
[2022-10-17 09:08] LABS: Absolute Neutrophil Ct (ANC) 3.62 x10^3/uL (1.4-6.9); BASOPHIL % 0.3 % (0.0-0.4); Basophil (Absolute #) 0.02 x10^3/uL (0-0.4); Eosinophil % 2.2 % (0.00-5.0); Eosinophil (Absolute #) 0.13 x10^3/uL (0-0.5); Hematocrit 41.6 % (35-47); Hemoglobin 13.6 g/dL (12.0-16.0); IMMATURE GRAN # 0.01 x10^3u/L (0.00-0.03); IMMATURE GRAN % 0.2 % (0.00-0.4); Lymphocyte (Absolute #) 1.77 x10^3/uL (1.0-4.6); Lymphocytes % 29.6 % (24.0-44.0); Mean Corpuscular Hemoglobin 29.8 pg (26-32); Mean Corpuscular Hgb Concent. 32.7 g/dL (32-36); Mean Platelet Volume 10.6 fL (7.5-11.0); Monocyte (Absolute #) 0.43 x10^3/uL (0.0-1.3); Monocytes % 7.2 % (0.0-12.0); Neutrophil % 60.5 % (36.0-66.0); Platelet Count 278 x10^3/uL (150-450); Red Blood Count 4.57 x10^6/uL (4.1-5.4); Red Cell Distribution Width 12.7 % (11.5-14.0)
[2022-10-17 09:19] LABS: INR 0.94 (0.8-3.0); PROTIME 10.3 SECONDS (9.4-12.5)
[2022-10-17 09:40] LABS: Appearance Clear (Clear); Bacteria None Seen /HPF (None Seen); Bilirubin Negative (Negative); Blood Trace (Negative); Epithelial Cells None Seen /HPF (None Seen); Glucose, Urine Negative (Negative); Hyaline Casts NONE SEEN /LPF (0-2); Ketones Negative (Negative); Leukocyte Esterase Negative (Negative); Nitrite Negative (Negative); Protein,Urine Dip Negative (Negative); RBC 0-2 /HPF (0-5); Specific Gravity 1.015 (1.005-1.030); Urobilinogen 0.2 mg/dL (0.2); WBC 0-2 /HPF (0-5)
[2022-10-17 09:41] LABS: ADD URINE CULTURE? NO (NO)
[2022-10-17 10:07] LABS: ALBUMIN 4.1 g/dL (3.5-5.0); ALKALINE PHOSPHATASE 88 U/L (38-126); ANION GAP 14.2 MEQ/L (5-15); BLOOD UREA NITROGEN 12 mg/dL (7-17); CHLORIDE 107 mmol/L (98-107); Calcium 9.1 mg/dL (8.4-10.2); Carbon Dioxide 23 mmol/L (22-30); Creatinine 1 0.66 mg/dL (0.52-1.04); EST GLOMERULAR FILTRATION RATE > 60.0 ML/MIN; Glucose 109 mg/dL (74-106); SGOT/AST 82 U/L (14-36); SGPT/ALT 95 U/L (0-35); SODIUM 140 mmol/L (137-145)
[2022-10-17 10:40] LABS: INFLUENZA A NEGATIVE (NEGATIVE); INFLUENZA B NEGATIVE (NEGATIVE); RESPIRATORY SYNCTIAL VIRUS NEGATIVE (Negative); SARS-CoV-2 Xpert Express NEGATIVE (NEGATIVE)
--- NOTE | 2022-10-17 11:36 | XRAY ---
Indication: Pelvic pain and bleeding. Multiple contiguous images obtained through the abdomen and pelvis without contrast. Comparison: January 25, 2007 Lung bases clear. Heart not enlarged. Noncontrasted stomach and bowel loops nonobstructed with normal appendix. Again mild scattered colonic fecal debris less than before. Minimal sigmoid diverticulosis without diverticulitis. No free fluid/air. Remaining liver liver, gallbladder, pancreas, spleen, adrenal glands, kidneys, ureters, bladder, uterus, and aorta are unremarkable for noncontrast exam. Osseous structures intact. Impression: 1. Mild fecal stasis and minimal sigmoid diverticulosis. 2. Remaining CT abdomen/pelvis without contrast exam continues to be negative.
--- NOTE | 2022-10-17 12:09 | ERPHSYRPT ---
- History of Present Illness Source: patient Exam Limitations: no limitations Patient Subjective Stated Complaint: Pt states "I had a cervical biopsy on 10/12/2022 and I passed tissue this morning and the bleeding is getting worse not better. I called Dr. Silva and they told me to come to ER." Triage Nursing Assessment: Pt presented alert and oriented X 3, skin pwd. Pt ambulates with an upright steady gait, able to speak in clear full sentences. Pt in no apaparent respiratory distress. Physician History: 41 yo wf who had a cervical biopsy by Dr. Silva on 10/12/22 complains of increased bleeding and abdominal cramping. Pt also has mild diarrhea/mild cough/nausea. Pt denies fever/dysuria/hematuria. Timing/Duration: other (10/12/22) Activites at Onset: rest Quality: cramping Onset Location: pelvic pain Pain Radiation: none Severity of Pain-Max: moderate Severity of Pain-Current: mild Prior abdominal problems: none Sexual intercourse history: non-contributory Modifying Factors: Improves With: nothing Associated Symptoms: abdominal pain, nausea Allergies/Adverse Reactions: doxycycline Allergy (Severe, Verified 09/22/20 06:58) Rash norethindrone [From Aygestin] Adverse Reaction (Intermediate, Verified 09/22/20 06:58) ondansetron HCl [From Zofran] Adverse Reaction (Mild, Verified 09/22/20 06:58) Headache Home Medications: clonazePAM [Clonazepam] 1 mg PO BID PRN PRN 05/05/20 [History] Desvenlafaxine Succinate [Pristiq] 50 mg PO DAILY 09/15/20 [History] Tranexamic Acid [Lysteda] 650 mg PO DAILY 09/15/20 [History] Acyclovir 200 mg Cap [Acyclovir] 200 mg PO DAILY PRN 09/22/20 [History] Hx Tetanus, Diphtheria Vaccination/Date Given: No Hx Influenza Vaccination/Date Given: No Hx Pneumococcal Vaccination/Date Given: No Travel Risk - International Travel Have you traveled outside of the country in past 3 weeks: No - Coronavirus Screening Are you exhibiting any of the following symptoms?: No Close contact with a COVID-19 positive Pt in past 14-21 Days: No - Vaccine Status Have you recieved a Covid-19 vaccination: Yes 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: [employer] - Vaccination Dates Date of 2cond Vaccination (if applicable): 2020 - Review of Systems Constitutional: No Symptoms Eyes: No Symptoms Ears, Nose, & Throat: No Symptoms Respiratory: No Symptoms, Cough Cardiac: No Symptoms Abdominal/Gastrointestinal: No Symptoms, Abdominal Pain, Nausea Genitourinary Symptoms: No Symptoms, Vaginal Bleeding Musculoskeletal: No Symptoms Skin: No Symptoms Neurological: No Symptoms Psychological: No Symptoms Endocrine: No Symptoms Hematologic/Lymphatic: No Symptoms Immunological/Allergic: No Symptoms - Past Medical History Pertinent Past Medical History: Yes Neurological History: Migraines ENT History: No Pertinent History Cardiac History: Other Respiratory History: No Pertinent History Endocrine Medical History: No Pertinent History Musculoskeletal History: No Pertinent History GI Medical History: GERD History: No Pertinent History Psycho-Social History: Anxiety, Depression Female Reproductive Disorders: Abnormal Uterine Bleeding Other Medical History: murmur - Past Surgical History Past Surgical History: Yes Neuro Surgical History: No Pertinent History Cardiac: No Pertinent History Respiratory: No Pertinent History Gastrointestinal: Exploratory Laparoscopy Genitourinary: No Pertinent History Musculoskeletal: No Pertinent History Female Surgical History: Dilation & Curettage, Other Other Surgical History: biopsy of uterus, hormonal pellets implanted. breast reduction. cervical biopsy. abdominoplasty - Social History Smoking Status: Current every day smoker Exposure to second hand smoke: Yes Drug Use: none Patient Lives Alone: No - Female History Hx Last Menstrual Period: 10/03/2022 Hx Now: No - Nursing Vital Signs Nursing Vital Signs: Initial Vital Signs Temperature 97.3 F 10/17/22 08:30 Pulse Rate 75 10/17/22 08:30 Respiratory Rate 20 10/17/22 08:30 Blood Pressure 134/92 10/17/22 08:30 O2 Sat by Pulse Oximetry 96 10/17/22 08:30 Pain Scale Pain Intensity 3 Mildly hypertensive - Physical Exam General Appearance: no apparent distress Eye Exam: PERRL/EOMI, eyes nml inspection Ears, Nose, Throat Exam: normal ENT inspection, TMs normal, pharynx normal, moist mucous membranes Neck Exam: normal inspection, non-tender, supple, full range of motion, No meningismus, No mass, No Brudzinski, No Kernig's, No carotid bruit Respiratory Exam: normal breath sounds, lungs clear, airway intact Cardiovascular Exam: regular rate/rhythm, normal heart sounds, normal peripheral pulses, capillary refill <2 sec, No murmur Gastrointestinal/Abdomen Exam: soft, normal bowel sounds, tenderness (Mild RLQ TTP wo guarding or rebound) Pelvic Exam: other (No active vaginal bleeding) Back Exam: normal inspection, normal range of motion, No CVA tenderness Extremity Exam: normal inspection, normal range of motion Neurologic Exam: alert, oriented x 3, cooperative, public health service officer II-XII nml as tested, normal mood/affect, nml cerebellar function, nml station & gait, sensation nml Skin Exam: normal color Lymphatic Exam: adenopathy SpO2 Interpretation: normal SpO2: 98 O2 Delivery: Room Air - Course Nursing assessment & vital signs reviewed: Yes - CT Exams Abdomen/Pelvis CT Interpretation: Discussed w/radiologist (CT ab-pelvis wo contrast-mild fecal stasis/Diverticulosis) Ordered Tests: Active Orders 24 hr Category Date Time Status ABDOMEN AND PELVIS W/0 CONTRAS [CT] Stat Exams 10/17/22 11:23 Completed CBC W DIFF Stat Lab 10/17/22 08:57 Completed CMP Stat Lab 10/17/22 09:24 Completed HCG,QUALITATIVE URINE Stat Lab 10/17/22 09:33 Completed PROTIME WITH INR Stat Lab 10/17/22 08:57 Completed PTT Stat Lab 10/17/22 08:57 Completed UA W/RFX UR CULTURE Stat Lab 10/17/22 09:24 Completed Medication Summary Discontinued Medications Generic Name Dose Route Start Last Admin Trade Name Marianela PRN Reason Stop Dose Admin Ketorolac Tromethamine 30 mg 10/17/22 12:16 10/17/22 12:22 Ketorolac Tromethamine 30 Mg/Ml Inj IM 10/17/22 12:17 30 mg STAT ONE Administration Ketorolac Tromethamine Confirm 10/17/22 12:20 Ketorolac Tromethamine 30 Mg/Ml Inj Administered 10/17/22 12:21 Dose 30 mg .ROUTE .STK-MED ONE Lab/Rad Data: Laboratory Result Diagrams 10/17/22 08:57 10/17/22 09:24 Laboratory Results 10/17/22 10/17/22 10/17/22 Range/Units 10:12 09:33 09:24 WBC (4.0-10.5) x10^3/uL RBC (4.1-5.4) x10^6/uL Hgb (12.0-16.0) g/dL Hct (35-47) % MCV (78-100) fL MCH (26-32) pg MCHC (32-36) g/dL RDW (11.5-14.0) % Plt Count (150-450) x10^3/uL MPV (7.5-11.0) fL Gran % (36.0-66.0) % Immature Gran % (Auto) (0.00-0.4) % Nucleat RBC Rel Count (0.00-0.1) % Eos # (Auto) (0-0.5) x10^3/uL Immature Gran # (Auto) (0.00-0.03) x10^3u/L Absolute Lymphs (auto) (1.0-4.6) x10^3/uL Absolute Monos (auto) (0.0-1.3) x10^3/uL Absolute Nucleated RBC (0.00-0.01) x10^3u/L Lymphocytes % (24.0-44.0) % Monocytes % (0.0-12.0) % Eosinophils % (0.00-5.0) % Basophils % (0.0-0.4) % Absolute Granulocytes (1.4-6.9) x10^3/uL Basophils # (0-0.4) x10^3/uL PT (9.4-12.5) SECONDS INR (0.8-3.0) APTT (25.1-36.5) SECONDS Sodium 140 (137-145) mmol/L Potassium 4.0 (3.5-5.1) mmol/L Chloride 107 (98-107) mmol/L Carbon Dioxide 23 (22-30) mmol/L Anion Gap 14.2 (5-15) MEQ/L BUN 12 (7-17) mg/dL Creatinine 0.66 (0.52-1.04) mg/dL Estimated GFR > 60.0 ML/MIN Glucose 109 H (74-106) mg/dL Calcium 9.1 (8.4-10.2) mg/dL Total Bilirubin 0.70 (0.2-1.3) mg/dL AST 82 H (14-36) U/L ALT 95 H (0-35) U/L Alkaline Phosphatase 88 (38-126) U/L Serum Total Protein 7.0 (6.3-8.2) g/dL Albumin 4.1 (3.5-5.0) g/dL Urine Color (Yellow) Urine Appearance (Clear) Urine pH (4.6-8.0) Ur Specific [place] (1.005-1.030) Urine Protein (Negative) Urine Glucose (UA) (Negative) mg/dL Urine Ketones (Negative) Urine Blood (Negative) Urine Nitrite (Negative) Urine Bilirubin (Negative) Urine Urobilinogen (0.2) mg/dL Ur Leukocyte Esterase (Negative) U Hyaline Cast (Auto) (0-2) /LPF Urine Microscopic RBC (0-5) /HPF Urine Microscopic WBC (0-5) /HPF Ur Epithelial Cells (None Seen) /HPF Urine Bacteria (None Seen) /HPF Urine Culture Reflexed (NO) Urine HCG, Qual NEGATIVE (Negative) Influenza Type A Ag NEGATIVE (NEGATIVE) Influenza Type B Ag NEGATIVE (NEGATIVE) RSV (PCR) NEGATIVE (Negative) SARS-CoV-2 (PCR) NEGATIVE (NEGATIVE) 10/17/22 10/17/22 10/17/22 Range/Units 09:24 08:57 08:57 WBC 6.0 (4.0-10.5) x10^3/uL RBC 4.57 (4.1-5.4) x10^6/uL Hgb 13.6 (12.0-16.0) g/dL Hct 41.6 (35-47) % MCV 91.0 (78-100) fL MCH 29.8 (26-32) pg MCHC 32.7 (32-36) g/dL RDW 12.7 (11.5-14.0) % Plt Count 278 (150-450) x10^3/uL MPV 10.6 (7.5-11.0) fL Gran % 60.5 (36.0-66.0) % Immature Gran % (Auto) 0.2 (0.00-0.4) % Nucleat RBC Rel Count 0.0 (0.00-0.1) % Eos # (Auto) 0.13 (0-0.5) x10^3/uL Immature Gran # (Auto) 0.01 (0.00-0.03) x10^3u/L Absolute Lymphs (auto) 1.77 (1.0-4.6) x10^3/uL Absolute Monos (auto) 0.43 (0.0-1.3) x10^3/uL Absolute Nucleated RBC 0.00 (0.00-0.01) x10^3u/L Lymphocytes % 29.6 (24.0-44.0) % Monocytes % 7.2 (0.0-12.0) % Eosinophils % 2.2 (0.00-5.0) % Basophils % 0.3 (0.0-0.4) % Absolute Granulocytes 3.62 (1.4-6.9) x10^3/uL Basophils # 0.02 (0-0.4) x10^3/uL PT 10.3 (9.4-12.5) SECONDS INR 0.94 (0.8-3.0) APTT 28.0 (25.1-36.5) SECONDS Sodium (137-145) mmol/L Potassium (3.5-5.1) mmol/L Chloride (98-107) mmol/L Carbon Dioxide (22-30) mmol/L Anion Gap (5-15) MEQ/L BUN (7-17) mg/dL Creatinine (0.52-1.04) mg/dL Estimated GFR ML/MIN Glucose (74-106) mg/dL Calcium (8.4-10.2) mg/dL Total Bilirubin (0.2-1.3) mg/dL AST (14-36) U/L ALT (0-35) U/L Alkaline Phosphatase (38-126) U/L Serum Total Protein (6.3-8.2) g/dL Albumin (3.5-5.0) g/dL Urine Color Yellow (Yellow) Urine Appearance Clear (Clear) Urine pH 6.0 (4.6-8.0) Ur Specific [place] 1.015 (1.005-1.030) Urine Protein Negative (Negative) Urine Glucose (UA) Negative (Negative) mg/dL Urine Ketones Negative (Negative) Urine Blood Trace (Negative) Urine Nitrite Negative (Negative) Urine Bilirubin Negative (Negative) Urine Urobilinogen 0.2 (0.2) mg/dL Ur Leukocyte Esterase Negative (Negative) U Hyaline Cast (Auto) NONE SEEN (0-2) /LPF Urine Microscopic RBC 0-2 (0-5) /HPF Urine Microscopic WBC 0-2 (0-5) /HPF Ur Epithelial Cells None Seen (None Seen) /HPF Urine Bacteria None Seen (None Seen) /HPF Urine Culture Reflexed NO (NO) Urine HCG, Qual (Negative) Influenza Type A Ag (NEGATIVE) Influenza Type B Ag (NEGATIVE) RSV (PCR) (Negative) SARS-CoV-2 (PCR) (NEGATIVE) - Progress Progress: improved Progress Note: 10/17/22 12:10 Spoke w sintia Merino to send home 10/17/22 12:16 30mg IM toradol Nursing note and vital signs reviewed No food or housing insecurities noted Reviewed labs and CT results and shared w pt Pt will f/u w Dr. Silva 10/17/22 20:26 Pt is a full code Counseled pt/family regarding: lab results, diagnosis, need for follow-up, rad results - Departure Departure Disposition: Home Clinical Impression: Vaginal bleeding Condition: Stable Critical Care Time: No Referrals: DAVID LUND MD [Primary Care Provider] - Follow up/PCP as directed Instructions: Bleeding Between Periods
[2022-10-17] MEDS ORDERED: TORAdol 30 mg Injection IM ONE (12:16)
[2022-10-17] MEDS ORDERED: TORAdol 30 mg Injection ONE (12:20)
[2022-10-17 12:27] VITALS: BP 145/97; PULSE 55
[2022-10-17 20:27] VITALS: O2SAT 98
== END 2022-10-17 12:35 | disposition home or self-care (01) ==
LOC: ED 08:24
DX: N93.8 Other specified abnormal uterine and vaginal bleeding (principal); N99.820 Postprocedural hemorrhage of a genitourinary system organ or structure following a genitourinary system procedure; R19.7 Diarrhea, unspecified; R05.9 Cough, unspecified; R11.0 Nausea; Z79.899 Other long term (current) drug therapy; Z72.0 Tobacco use
CPT/HCPCS: 0241U; 36415; 74176; 80053; 81001; 81025; 85025; 85610; 85730; 96372; 99283; J1885

== ENCOUNTER 2023-12-07 06:35 | Day surgery (SDC) | payer BC ==
[2023-12-07] MEDS ORDERED: XYLOCAINE 1%/Epi 1:100000 MDV 20 ML ONE (06:39)
[2023-12-07] MEDS ORDERED: ASTRINGYN 8 GM TP ONE (06:39)
[2023-12-07] MEDS ORDERED: Lactated Ringers 0 ML IV ONE (06:39)
[2023-12-07] MEDS ORDERED: Lugol's Solution ONE (06:42)
[2023-12-07 07:01] VITALS: RESP 16
[2023-12-07] MEDS ORDERED: XYLOCAINE 1% HCL 20 ML MDV ONE (07:39)
[2023-12-07 08:16] VITALS: BP 127/94; PULSE 50; TEMP 97.4; O2SAT 99
[2023-12-07] MEDS ORDERED: TORAdol 30 mg Injection ONE (08:19)
[2023-12-07] MEDS: TORAdol 30 mg Injection IM ONE (08:23)
--- NOTE | 2023-12-07 08:39 | PCM.BN ---
Brief Admission Note - Admission Note Brief Admisson Note: Sonya Shook was admitted @ [facility] this morning for LEEP. Medication List reviewed and reconciled. Patient heck had persistent, mild cervical dysplasia and requested LEEP in the hope for definitive treatment and resolution.
--- NOTE | 2023-12-07 09:48 | OP ---
SURGERY DATE/TIME: 12/07/2023 0734 PREOPERATIVE DIAGNOSIS: Persistent mild cervical dysplasia. POSTOPERATIVE DIAGNOSIS: Persistent mild cervical dysplasia. PROCEDURES: Loop electrosurgical excision procedure (LEEP). SURGEON: Manny Orozco M.D. ANESTHESIA: Paracervical block using 1% plain lidocaine. COMPLICATIONS: None. ESTIMATED BLOOD LOSS: 10 cc. DESCRIPTION OF PROCEDURE AND FINDINGS: The patient was brought to the operating room suite and placed in the dorsal lithotomy position. Her cervix is sterilely prepped with both Betadine and then Lugol solution. Paracervical block using 20 cc of 1% plain lidocaine was placed in four quadrant technique. After ascertaining adequacy of the anesthetic level, two loop specimens were obtained of ectocervical tissue and then the shallow end of cervical sample. Hemostasis was then achieved with 5 mm cautery ball. The patient was observed for three minutes to insure adequate hemostasis before removing the speculum. She tolerated the procedure well. All sponge, instrument and needle counts were correct.
== END 2023-12-07 08:28 | disposition home or self-care (01) ==
LOC: SDC 06:35
PROVIDERS: ATTEND Obstetrics & Gynecology
DX: N87.0 Mild cervical dysplasia (principal)
CPT/HCPCS: J1885; A9270-GY